=== PATIENT | female | born 1960 | race Caucasian/White ===

== ENCOUNTER → 2018-09-26 08:22 | Outpatient (CLI) | payer MEDICARE ==
[2016-01-30 05:44] VITALS: BMI 31.5
[~2018-09-26 08:22] MED LIST: ASPIRIN325 MG PO; BAYER CHEWABLE81 MG PO; VICTOZA0.6 MG/0.1 SQ
== END | disposition home or self-care (01) ==
LOC: D.NM 08:22
DX: R10.11 Right upper quadrant pain (principal)